=== PATIENT | male | born 1955 | race Caucasian/White ===

== ENCOUNTER 2020-02-13 14:27 | Outpatient (CLI) | payer MEDICARE, SELFPAY ==
--- NOTE | ~2020-02-13 | CT_ITS ---
EXAMINATION: CT abdomen pelvis wo con DATE: 02/13/2020 14:57 INDICATION: Epigastric pain and weight loss TECHNIQUE: Computed tomography (CT) of the abdomen and pelvis was performed without intravenous contr ast. The dose-length product (DLP) was 566.57 mGy-cm. Automated exposure control and iterative recons truction technique were employed. COMPARISON: 08/17/2018 FINDINGS: Minimal dependent atelectasis is present in the lung bases. The heart size is normal. The l iver, spleen, pancreas, gallbladder, and adrenal glands are normal. The kidneys are unremarkable. No pathologically enlarged abdominal or pelvic lymph nodes are identified. There is no free intraperiton eal gas or evidence of bowel obstruction. The appendix is normal. Colonic diverticulosis is present w ithout evidence of diverticulitis. There is questionable wall thickening and stricture in the third p ortion of the duodenum. There is severe lumbar spondylosis at L5-S1. IMPRESSION: 1. Possible wall thickening and stricture in the third portion of the duodenum aerated although findi ngs could be due to incomplete distention, endoscopy is recommended. Reviewed, dictated and finalized at location A. IMPRESSION: 1. Possible wall thickening and stricture in the third portion of the duodenum aerated although findings could be due to incomplete distention, endoscopy is r ecommended.
== END 2020-02-13 14:28 | disposition home or self-care (01) ==
PROVIDERS: PCP Family Medicine; Visit Provider Physician Assistant
DX: R11.10 Vomiting, unspecified (principal); R10.13 Epigastric pain
CPT/HCPCS: 74176

== ENCOUNTER 2023-03-23 20:35 | Emergency (ER) | payer MEDICARE, SELFPAY ==
[2023-03-23 20:36] VITALS: BP 132/63; PULSE 75; RESP 18; TEMP 36.6; O2SAT 99
[2023-03-23 21:12] LABS: Strep Group A RT-PCR NOT DETECTED (Negative)
[2023-03-23 21:23] LABS: Influenza A QL RT-PCR Negative (Negative); Influenza B QL RT-PCR Negative (Negative); SARS-CoV-2 RNA PCR Negative (Negative)
--- NOTE | 2023-03-23 21:40 | ED.GENADULT ---
[facility] - General Adult General Chief complaint: Unspecified Stated complaint: sore throat Time Seen by Provider: 03/23/23 21:29 Source: patient Mode of arrival: ambulatory Limitations: no limitations History of Present Illness [facility] narrative: This is a 67-year-old male who presents to the ED with chief complaint of sore throat beginning yesterday. Reports that he has also had cough and sinus congestion. Reports low-grade fevers up to 100 ?F. He states symptoms mildly improved with Advil. States the cough is largely nonproductive. Denies any further complaint. Denies any known sick contacts. Denies chest pain, abdominal pain, nausea, vomiting. Related Data Allergies Allergy/AdvReac Type Severity Reaction Status Date / Time No Known Allergies Allergy Mild Verified 03/23/23 21:30 Review of Systems Review of Systems: All systems as dictated in [facility] Family History Family History (Updated 12/18/15 @ 23:19 by DOCTOR UNKNOWN) Sibling Family history of hypothyroidism Mother Family history of diabetes mellitus in first degree relative Social History Social History Smoking end date: 05/22/09 Alcohol intake: current Exam Narrative: GENERAL: Well-appearing, well-nourished, and in no acute distress. HEAD: Normocephalic, atraumatic. EYES: PERRLA and EOMI. ENT: Erythematous posterior oropharynx. Mild tonsillar hypertrophy bilaterally. No exudates noted. No muffled voice, drooling, trismus. Floor the mouth intact. No neck swelling. Sinus congestion present. Mucous membranes moist. NECK: Supple. No adenopathy or masses. CHEST: No respiratory distress. Clear to auscultation. No wheezes rales or rhonchi HEART: Regular rate and rhythm. No murmur heard. Normal peripheral pulses. ABDOMEN: Soft, nontender, nondistended, normal active bowel sounds. MSK: Normal range of motion. No edema. SKIN: Warm, dry, no rash. NEURO: Alert and oriented x3. No focal deficits. PSYCH: Normal mood and affect. Course Vital Signs Vital signs: Vital Signs Temperature 97.9 F 03/23/23 20:36 Pulse Rate 75 03/23/23 20:36 Respiratory Rate 18 03/23/23 20:36 Blood Pressure 132/63 03/23/23 20:36 Pulse Oximetry 99 03/23/23 20:36 Oxygen Delivery Room Air 03/23/23 20:36 Temperature 97.9 F 03/23/23 20:36 Pulse Rate 76 03/23/23 22:10 Respiratory Rate 15 03/23/23 22:10 Blood Pressure 124/70 03/23/23 22:10 Pulse Oximetry 100 03/23/23 22:10 Oxygen Delivery Room Air 03/23/23 20:36 Medical Decision Making MDM Narrative Medical decision making narrative: This is a 67-year-old male who presents to the ED with chief complaint of viral URI complaints. Vitals are normal. Exam is benign. Viral swabs and strep swab are negative. His symptoms consistent with other viral URI. He was given steroids for relief of the sore throat as well as Tessalon Perles for cough. Pt will be discharged in stable condition. Return precautions given and supportive measures discussed. Pt is understanding and agreeable with plan for discharge and follow-up with PCP. Vital Signs Vital Signs: Vital Signs Temperature 97.9 F 03/23/23 20:36 Pulse Rate 75 03/23/23 20:36 Respiratory Rate 18 03/23/23 20:36 Blood Pressure 132/63 03/23/23 20:36 Pulse Oximetry 99 03/23/23 20:36 Oxygen Delivery Room Air 03/23/23 20:36 Temperature 97.9 F 03/23/23 20:36 Pulse Rate 76 03/23/23 22:10 Respiratory Rate 15 03/23/23 22:10 Blood Pressure 124/70 03/23/23 22:10 Pulse Oximetry 100 03/23/23 22:10 Oxygen Delivery Room Air 03/23/23 20:36 Lab Data Labs: Lab Results 03/23/23 03/23/23 Range/Units 20:41 20:42 Influenza A (RT-PCR) Negative (Negative) Influenza B (RT-PCR) Negative (Negative) SARS-CoV-2 RNA (RT-PCR) Negative (Negative) Group A Strep (PCR) Not detected (Negative) Discharge Plan Discharge Clinical Impression: Upper respir
[2023-03-23] MEDS: predniSONE 20 MG TABLET PO (21:47)
[2023-03-23 22:10] VITALS: BP 124/70; PULSE 76; RESP 15; O2SAT 100
== END 2023-03-23 22:12 | disposition home or self-care (01) ==
PROVIDERS: Student in an Organized Health Care Education/Training Program; Emergency Provider Physician Assistant
DX: J06.9 Acute upper respiratory infection, unspecified (principal); Z20.822 Contact with and (suspected) exposure to COVID-19; Z87.891 Personal history of nicotine dependence
CPT/HCPCS: 87636; 87651; 99283; J7512